=== PATIENT | female | born 1970 | race Caucasian/White ===

== ENCOUNTER 2023-01-16 06:51 | Day surgery (SDC) | payer OTHER ==
[2023-01-15 12:06] VITALS: BMI 19.5
[2023-01-16] MEDS ORDERED: Oxymetazoline HCl 0.05% (30 ML BOT) ONE (08:15)
[2023-01-16 08:16] LABS: Hematocrit 41.6 % (36.0-47.0)
[2023-01-16] MEDS ORDERED: Bacitracin Zinc Ointment 30 gm TUBE ONE (08:36)
[2023-01-16] MEDS ORDERED: EPINEPHrine 1 MG/ML VIAL ONE (08:36)
[2023-01-16] MEDS ORDERED: Lidocaine 1% (PF) 30 ML VIAL ONE (08:36)
[2023-01-16] MEDS ORDERED: fentaNYL PF 100 MCG/2 ML SYRINGE ONE (08:38)
[2023-01-16] MEDS ORDERED: Midazolam HCl 2 mg/2 ml Vial ONE (08:38)
[2023-01-16] MEDS ORDERED: PROPOFOL 40 ML ONE (08:38)
[2023-01-16] MEDS ORDERED: Ondansetron PF 4 MG/2 ML Vial ONE ×2 (08:40→08:44)
[2023-01-16] MEDS ORDERED: Dexamethasone 20 MG/5 ML VIAL ONE ×2 (08:40→08:44)
[2023-01-16] MEDS ORDERED: Lidocaine 1% PF 5 ML VIAL ONE ×2 (08:40→08:44)
[2023-01-16] MEDS ORDERED: PROPOFOL 200 MG/20 ML VIAL ONE (08:44)
[2023-01-16] MEDS ORDERED: fentaNYL 50 mcg/mL 1 mL Vial ONE (09:47)
[2023-01-16] MEDS ORDERED: HYDROcodone/Acetaminophen 5/325 mg Tablet ONE (10:13)
== END 2023-01-16 11:04 | disposition home or self-care (01) ==
LOC: SDC 06:51
PROVIDERS: ATTEND Otolaryngology Plastic Surgery within the Head & Neck
PROC: 09BL0ZZ Excision of Nasal Turbinate, Open Approach (ICD-10-PCS; principal; 2023-01-16)
PROC: 09BM0ZZ Excision of Nasal Septum, Open Approach (ICD-10-PCS; principal; 2023-01-16)
DX: J34.2 Deviated nasal septum (principal); J34.3 Hypertrophy of nasal turbinates; J34.89 Other specified disorders of nose and nasal sinuses; Z87.891 Personal history of nicotine dependence
CPT/HCPCS: 85014; 93005; 93010; J0171; J1100; J2001; J2250; J2405; J2704; J3010